=== PATIENT | male | born 2000 | race Caucasian/White ===

== ENCOUNTER 2022-07-18 14:36 | Emergency (ER) | payer SELFPAY ==
--- NOTE | ~2022-07-18 | XR_ITS ---
EXAM: XR foot RT min 3V DATE: 07/18/2022 15:27 HISTORY: NO INJURY WOKE UP WITH PAIN ACROSS TOP OF FOOT . COMPARISON: None available. FINDINGS: Normal mineralization. No fracture or dislocation. No lytic or blastic lesion. Achilles an d plantar enthesopathy Joint spaces are maintained. No erosion or periosteal change. Soft tissues wit hin normal limits. IMPRESSION: No acute osseous finding in the right foot. Reviewed, dictated and finalized at location K.
--- NOTE | 2022-07-18 14:38 | ED.LOWEXIN ---
HPI - Extremity Injury (Lower) General Chief Complaint: Extremity Injury, Lower Stated Complaint: R FOOT PAIN Time Seen by Provider: 07/18/22 14:38 Source: patient, family and RN notes reviewed History of Present Illness HPI Narrative: Patient is a 21-year-old male who presents to urgent care with complaints of right foot pain. Patient states that when he stepped out of bed, the pain caused him to stumble. Patient states that it shoots up the foot. Denies any known injuries. Patient is not taking anything [id number] for his pain. No other acute complaints. No acute distress noted. Patient aware of the plan of care. Some parts of this dictation were generated by voice recognition software and may contain typographical and/or grammatical inaccuracies. Related Data Home Medications Medication Instructions Recorded Confirmed No Home Medications 07/18/22 07/18/22 Allergies Allergy/AdvReac Type Severity Reaction Status Date / Time No Known Allergies Allergy Verified 07/18/22 14:46 Review of Systems Review of Systems: CONSTITUTIONAL: Denies fever, chills, or sweats. EYES: Denies visual changes, redness, or discharge. ENT: Denies rhinorrhea, congestion, sore throat, or otalgia. CARDIOVASCULAR: Denies chest pain, palpitations, or edema. RESPIRATORY: Denies cough or dyspnea. GASTROINTESTINAL: Denies abdominal pain, nausea, vomiting, or diarrhea. GENITOURINARY: Denies dysuria or hematuria. SKIN: Denies rash or itching. MUSCULOSKELETAL: Reports of right foot pain NEUROLOGIC: Denies headache, numbness, or weakness. All other systems reviewed are negative, except as documented in HPI. PMFSH Comments At the time of my signature, I reviewed and agree with the nursing past medical, surgical, social, and family history. There is no relevant family history pertinent to the patient complaint. Exam Narrative: GENERAL: This is a well-nourished, well-developed patient, in no apparent distress. HEAD: normocephalic, atraumatic. EYES: PERRL. Sclera clear/white. Vision is grossly intact. EARS: External ears normal NOSE: External nose normal with no obvious nasal discharge, nares without redness, no rhinorrhea. THROAT: Mucous membranes moist NECK: Neck supple SKIN: warm, intact with no suspicious lesions or rash, good texture and turgor. NEURO: awake, alert, and oriented to person, place and time. There were no obvious focal neurologic abnormalities. EXTREMITIES: No edema, ecchymosis or erythema noted to the right lower extremity/foot. Positive strong right pedal pulse with capillary refill less than 2 seconds. Range of motion within normal limits with mild exacerbated pain to the dorsal right foot with flexion. Course Course Level of Care: Express Care Visit Vital Signs Vital signs: Vital Signs Temperature 99.2 F 07/18/22 14:48 Pulse Rate 96 07/18/22 14:48 Respiratory Rate 16 07/18/22 14:48 Blood Pressure 148/85 H 07/18/22 14:48 Pulse Oximetry 100 07/18/22 14:48 Temperature 99.2 F 07/18/22 14:48 Pulse Rate 96 07/18/22 14:48 Respiratory Rate 16 07/18/22 14:48 Blood Pressure 148/85 H 07/18/22 14:48 Pulse Oximetry 100 07/18/22 14:48 Reviewed- Patient is informed that they may have pre-hypertension or hypertension based on a blood pressure reading in the department. I recommend the patient call the primary care provider listed on their discharge instructions or a physician of their choice this week to arrange follow-up for further evaluation of possible pre-hypertension or hypertension. MDM - Extremity Injury (Lower) MDM Narrative Medical decision making narrative: Reviewed x-ray results patient. He is aware that x-ray was negative for fracture deformity. Advised him to use ice/Tylenol/ibuprofen as needed for pain or discomfort. May wear an Quan wrap for support. Wear supportive shoe. Continue normal activity as tolerated. Follow-up with your PCP within 2-5 days or for worsenin
[2022-07-18 14:48] VITALS: BP 148/85; PULSE 96; RESP 16; TEMP 37.3; O2SAT 100
== END 2022-07-18 16:00 | disposition home or self-care (01) ==
PROVIDERS: Emergency Provider Nurse Practitioner Family; PCP Pediatrics
DX: M79.671 Pain in right foot (principal)
CPT/HCPCS: 73630; 99213; G0463